=== PATIENT | male | born 1990 | race Hispanic/Latino ===

== ENCOUNTER 2017-12-18 18:53 | Emergency (ER) | payer OTHER ==
[2017-12-18] MEDS ORDERED: KETOROLAC TROMETHAMINE 30MG/ML ONE (19:21)
[2017-12-18] MEDS ORDERED: MAG HYDROX/AL HYDROX/SIMETH ES 30 ML SUSP UDCUP ONE (19:21)
[2017-12-18] MEDS ORDERED: LIDOCAINE HCL 2% VISCOUS 15 ML UDCUP ONE (19:21)
== END 2017-12-18 20:03 | disposition home or self-care (01) ==
LOC: EDH 18:53
DX: K29.00 Acute gastritis without bleeding (principal); Z72.0 Tobacco use
CPT/HCPCS: 96372; 99283; J1885